=== PATIENT | male | born 2000 | race Caucasian/White ===

== ENCOUNTER 2019-09-17 08:06 | Emergency (ER) | payer SELFPAY ==
[2019-09-17] MEDS ORDERED: LIDOCAINE 1% INJ-PF (10 MG/ML) 30 ML SDV ONE (10:28)
[2019-09-17] MEDS ORDERED: SULFAMETHOXAZOLE/TRIMETHOPRIM 800-160 MG TABLET PO ONE (10:31)
[2019-09-17] MEDS ORDERED: LIDOCAINE 1% INJ-PF (10 MG/ML) 30 ML SDV INJ ONE (10:35)
[2019-09-17] MEDS ORDERED: CLINDAMYCIN HCL 150 MG CAPSULE PO ONE (11:28)
--- NOTE | 2019-09-17 11:58 | ER Document Report ---
Entered by ELIZA DYKES SCRIBE 09/17/19 1011 Acting as scribe for:KAVIN NEVILLE MD ED Skin Rash/Insect Bite/Abscs - General Chief Complaint: Insect Bite Stated Complaint: SPIDER BITE Mode of Arrival: Ambulatory Information source: Patient Notes: This 19 year old male patient presents to the emergency department today with complaints of an abscess to his right upper buttock. Patient calls this area a spider bite although he did not see a spider bite the area. Patient's tetanus status is up-to-date. Patient states the area has been draining for the past 7 days. Patient denies a history of diabetes. - Related Data Allergies/Adverse Reactions: No Known Allergies Allergy (Verified 09/17/19 08:11) Past Medical History - General Information source: Patient - Social History Smoking Status: Current Every Day Smoker Cigarette use (# per day): Yes Chew tobacco use (# tins/day): No Frequency of alcohol use: None Drug Abuse: None Lives with: Family Family History: Reviewed & Not Pertinent, Malignancy - Lung CA Patient has homicidal ideation: No Psychiatric Medical History: Reports: Hx Attention Deficit Hyperactivity Disorder Surgical Hx: Negative - Immunizations Immunizations up to date: Yes Hx Diphtheria, Pertussis, Tetanus Vaccination: Yes Review of Systems - Review of Systems Constitutional: No symptoms reported EENT: No symptoms reported Cardiovascular: No symptoms reported Respiratory: No symptoms reported Gastrointestinal: No symptoms reported Genitourinary: No symptoms reported Male Genitourinary: No symptoms reported Musculoskeletal: No symptoms reported Skin: See HPI, Change in color, Lesions Hematologic/Lymphatic: No symptoms reported Neurological/Psychological: No symptoms reported -: Yes All other systems reviewed and negative Physical Exam - Vital signs Vitals: Temp Pulse Resp BP Pulse Ox 98.2 F 111 H 16 129/67 H 100 09/17/19 08:11 09/17/19 08:11 09/17/19 08:11 09/17/19 08:11 09/17/19 08:11 - Notes Notes: Physical Exam: General: Alert, appears well. HEENT: Normocephalic. Atraumatic. PERRLA. Extraocular movements intact. Oroph arynx clear. Neck: Supple. Respiratory: No respiratory distress. Abdominal: Normal Inspection. No distension. Extremities: Moves all four extremities. Neurological: Normal cognition. AAOx4. Normal speech. Psychological: Normal affect. Normal Mood. Skin: 6cm x 5cm area of erythema, induration, with central pointing over the right upper buttock consistent with abscess formation. Course - Re-evaluation Re-evalutation: 09/17/19 11:55 Patient resting comfortably not showing any signs of distress. - Vital Signs Vital signs: Temp Pulse Resp BP Pulse Ox 98.2 F 111 H 16 129/67 H 100 09/17/19 08:11 09/17/19 08:11 09/17/19 08:11 09/17/19 08:11 09/17/19 08:11 09/17/19 11:56 Vital signs are stable afebrile. Patient is status post incise and drainage of right buttock abscess. Patient tolerated procedure well no complications. Packing inserted into wound site and dressed to cover wound site with nonadhesive dressing. - Laboratory Laboratory results interpreted by me: Culture sent to lab from wound site incision and drainage of right buttock abscess. Procedures - Incision and Drainage Right Buttock Time completed: 20:00 Anesthetic type: 1% Lidocaine mL's of anesthetic: 17 Blade size: 11 I&D procedure: Betadine prep applied, Iodoform packing placed - 1/2 in packing inserted into wouund site post irrigation with 20 ml of saline and minimal debridement. Incision Method: Incision made by scalpel Notes: 09/17/19 11:31 4 ml of red liquid with yellow kerritin flakes expressed from wound site. Discharge - Discharge Clinical Impression: Abscess of right buttock Condition: Stable Disposition: HOME, SELF-CARE Instructions: Abscess ([facility]), Post Incision and Drainage, Trimethoprim-Sulfa ([facility]) Additional Instructions: Packing removal in 2 days. You may return to the emergency department to have packing removed. Prescriptions: Sulfamethoxazole/Trimethoprim [Bactrim Ds Tablet] 1 tab PO BID 10 Days #20 tablet Clindamycin HCl 300 mg PO TID #30 capsule Ibuprofen [Motrin 800 mg Tablet] 800 mg PO Q8H PRN #30 tab PRN Reason: pain I personally performed the services described in the documentation, reviewed and edited the documentation which was dictated to the scribe in my presence, and it accurately records my words and actions.
[2019-09-17] MEDS ORDERED: IBUPROFEN 800 MG TABLET PO ONE (11:59)
[2019-09-17 12:21] VITALS: BP 122/83
== END 2019-09-17 12:19 | disposition home or self-care (01) ==
LOC: ER 08:06
PROC: 0H98XZZ Drainage of Buttock Skin, External Approach (ICD-10-PCS; principal; 2019-09-17)
DX: T63.301A Toxic effect of unspecified spider venom, accidental (unintentional), initial encounter (principal); L02.31 Cutaneous abscess of buttock; F17.210 Nicotine dependence, cigarettes, uncomplicated
CPT/HCPCS: 99283; 87070; 87205; 87075; 87077; 10060; J3490; 87186